=== PATIENT | male | born 1970 | race Caucasian/White ===

== ENCOUNTER 2017-01-03 14:25 | Emergency (ER) | payer BC ==
[~2017-01-03] VITALS: Ht 172.7 cm; Wt 100.0 kg
[2017-01-03] MEDS ORDERED: NAPROSYN500 MG PO (15:23)
[2017-01-03] MEDS ORDERED: FLEXERIL PO (15:23)
[2017-01-03 15:44] VITALS: BP 131/79
== END 2017-01-03 15:44 | disposition home or self-care (01) | DRG 563 ==
LOC: ED 14:25
DX: S86.911A Strain of unspecified muscle(s) and tendon(s) at lower leg level, right leg, initial encounter (principal); M25.461 Effusion, right knee; Z96.651 Presence of right artificial knee joint; M25.561 Pain in right knee; X58.XXXA Exposure to other specified factors, initial encounter; Y93.I9 Activity, other involving external motion; Y92.810 Car as the place of occurrence of the external cause